=== PATIENT | female | born 1940 | race Caucasian/White ===

== ENCOUNTER 2021-08-17 10:46 | Emergency (ER) | payer MEDICARE ==
[~2021-08-17] VITALS: Ht 165.1 cm; Wt 97.5 kg
[2021-08-17 11:28] LABS: BASOPHILS % 0.4 % (0.0-1.0); EOSINOPHILS # (AUTO) 0.1 (0.0-0.4); EOSINOPHILS % 1.1 % (0.0-6.0); HEMATOCRIT 39.4 % (34.2-44.1); HEMOGLOBIN 12.8 g/dL (12.0-16.0); LYMPHOCYTES # (AUTO) 2.7 (1.0-3.2); LYMPHOCYTES % 37.8 % (18.0-39.1); MEAN CORPUSCULAR HEMOGLOBIN 32.1 pg (28-32); MEAN CORPUSCULAR HGB CONC 32.5 g/dL (31-35); MEAN CORPUSCULAR VOLUME 98.7 fL (81-99); MONOCYTES # (AUTO) 0.6 (0.2-0.8); MONOCYTES % 8.6 % (4.4-11.3); NEUTROPHILS # (AUTO) 3.7 (2.1-6.9); NEUTROPHILS % 51.5 % (38.7-80.0); PLATELET COUNT 249 x10e3/uL (140-360); RED BLOOD COUNT 3.99 x10e6/uL (3.6-5.1); RED CELL DISTRIBUTION WIDTH 14.6 % (11.7-14.4)
[2021-08-17 11:46] LABS: INR 2.57; PROTHROMBIN TIME 29.6 seconds (11.9-14.5)
[2021-08-17 11:49] LABS: ALBUMIN 3.8 g/dL (3.5-5.0); ANION GAP 15.9 mmol/L (8-16); CALCIUM 9.4 mg/dL (8.4-10.2); CREATININE, SERUM 1.62 mg/dL (0.57-1.11); POTASSIUM 4.9 mmol/L (3.5-5.1)
[2021-08-17 11:55] LABS: CREATINE KINASE MB 0.9 ng/mL (0-5.0)
[2021-08-17] MEDS ORDERED: KETOROLAC TROMETHAMINE 30 MG/ML VIAL IV STA (13:04)
[2021-08-17] MEDS ORDERED: METOCLOPRAMIDE HCL 10 MG/2ML VIAL IV ONE (13:15)
[2021-08-17] MEDS ORDERED: DIPHENHYDRAMINE HCL 25 MG CAP PO ONE (13:15)
[2021-08-17] MEDS ORDERED: SODIUM CHLORIDE 0.9% 1000ML 1,000 ML IV SCH (13:15)
[2021-08-17] MEDS ORDERED: SODIUM CHLORIDE 0.9% 1000ML 1,000 ML ONE (13:26)
== END 2021-08-17 15:37 | disposition home or self-care (01) ==
LOC: ER 11:57
DX: R51.9 Headache, unspecified (principal); D32.0 Benign neoplasm of cerebral meninges; R42 Dizziness and giddiness; I10 Essential (primary) hypertension; Z86.2 Personal history of diseases of the blood and blood-forming organs and certain disorders involving the immune mechanism; Z85.528 Personal history of other malignant neoplasm of kidney
CPT/HCPCS: 36415; 70450; 71045; 80053; 82550; 82553; 84484; 85025; 85610; 85730; 93005; 99284; J2765; J7030; U0002